=== PATIENT | female | born 1975 | race Hispanic/Latino ===

== ENCOUNTER 2018-12-18 08:37 | Outpatient (CLI) | payer OTHER ==
--- NOTE | 2018-12-18 11:28 | MRI ---
MRI BRAIN AND SELLA WITH AND WITHOUT CONTRAST: Date: 12/18/18 HISTORY: 43-year-old female with tumor of pituitary gland. COMPARISON: None available. TECHNIQUE: Multiplanar, multisequence MRI of whole brain, plus thin slices through sella turcica, obtained pre a nd post IV injection of 10 mL of MultiHance Gadolinium based contrast agent. FINDINGS: Ventricles are normal in size and configuration. No abnormal intra-axial signal abnormality, abnormal enhancement, restricted diffusion, recent or remote hemorrhage, or mass, in the brain parenchyma. The infundibular stalk is deviated to the right. Optic chiasm is normal with no extrinsic compression by any suprasellar mass. There is an approximately 10 x 15 x 10 mm mass in the left side of the sell a turcica, which superiorly bulges the left side of the diaphragma sellae mildly. It is heterogeneous ly T2-hyperintense, moderately T1-hypointense, and has heterogeneous, patchy enhancement. The enhance ment is not homogeneous, even on the post dynamic, static delayed images. It abuts the medial edge of the left cavernous carotid, but does not invade the cavernous sinuses or envelop the cavernous carot id. IMPRESSION: 1. Heterogeneously enhancing mass at the left side of the sella turcica, approximately 1 x 1 x 1.5 c m. 2. The enhancement pattern is not typical for an untreated pituitary macroadenoma. 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 Comparisons with any existing MRI studies from outside facilities woul d be useful. 3. The brain is normal. POS: CET
== END 2018-12-18 08:38 | disposition home or self-care (01) ==
LOC: SCSMRI 08:37
PROVIDERS: ATTEND Neurological Surgery
DX: D49.7 Neoplasm of unspecified behavior of endocrine glands and other parts of nervous system (principal); E23.6 Other disorders of pituitary gland
CPT/HCPCS: 70553

== ENCOUNTER 2019-12-10 09:39 | Outpatient (CLI) | payer OTHER ==
--- NOTE | 2019-12-10 11:19 | MRI ---
MRI BRAIN AND SELLA WITH AND WITHOUT CONTRAST: DATE: 12/10/2019 HISTORY: 44-year-old female follow-up pituitary tumor COMPARISON: 12/18/2018 TECHNIQUE: Multiplanar, multisequence MRI of the whole brain, and thin slices through sella turcica, obtained pr e and post IV injection of gadolinium based contrast agent. FINDINGS: Again noted is the approximately 1 x 1 x 1.5 cm left sellar/parasellar mass, abutting the left cavern ous sinus and left cavernous carotid. Optic chiasm is normal. The ventricles are normal in size and configuration. There is no midline shift or any other evidence of mass effect. There is no extra-axial fluid collection. There is no intra-axial signal abnormality, abnormal enhancement, mass, recent hemorrhage, or restricted diffusion. IMPRESSION: 1) no significant interval change in the left sellar/parasellar mass. 2) the brain is normal.
[2019-12-10] MEDS ORDERED: Magnevist 469MG/ML 20 ML VIAL ONE (13:04)
== END 2019-12-10 09:40 | disposition home or self-care (01) ==
LOC: MRI 09:39
PROVIDERS: ATTEND Neurological Surgery
DX: D35.2 Benign neoplasm of pituitary gland (principal)
CPT/HCPCS: 70553; A9579

== ENCOUNTER 2023-05-11 12:35 | Outpatient (CLI) | payer OTHER | END 2023-05-11 12:36 | disposition home or self-care (01) | LOC: MRI 12:35 → SCSMRI 12:36 | PROVIDERS: ATTEND Neurological Surgery | DX: D35.2 Benign neoplasm of pituitary gland (principal) | CPT/HCPCS: 70553 ==